=== PATIENT | male | born 1965 | race African-American/Black ===

== ENCOUNTER 2021-02-27 08:12 | Emergency (ER) | payer OTHER, SELFPAY ==
--- NOTE | ~2021-02-27 | CT_ITS ---
EXAMINATION: CT HEAD WITHOUT CONTRAST CLINICAL INFORMATION: Fall, trauma COMPARISON: None TECHNIQUE: Contiguous axial imaging was performed from the skull base to vertex without intravenous administration of contrast. Additional 2-D coronal and sagittal reformatted images are generated on the CT workstation and uploaded to PACS. This CT examination was performed using dose optimization techniques as appropriate, variously including the following: *Automated exposure control *Adjustment of mA and/or kV according to patient size (this includes techniques or standardized protocols for targeted exams where dose is matched to indication/reason for exam; i.e. extremities or head) *Use of iterative reconstruction technique DLP: 960 mGy-cm FINDINGS: There is no intracranial hemorrhage, hematoma, or extra-axial fluid collection. The ventricles are normal in size. There is no hydrocephalus, edema, or mass effect. The dawkins-white matter differentiation appears symmetric. Punctate basal ganglia calcifications present. There is no visible acute territorial infarct or mass lesion. There is depression proximal nasal bridge but without overlying soft tissue swelling suggesting old injury. This may be correlated with patient's symptoms and clinical exam. The calvarium appears intact. There is no calvarial fracture. There are no air-fluid levels in the sinuses and middle ears or mastoids. There is mild mucosal thickening left maxillary sinus. CT/CT head/brain wo con IMPRESSION: 1. No intracranial hemorrhage, hydrocephalus, or edema. 2. Probable old fracture nasal bridge. Clinically correlate.
--- NOTE | ~2021-02-27 | CT_ITS ---
EXAMINATION: CT CHEST, ABDOMEN AND PELVIS WITH CONTRAST. CLINICAL INFORMATION: Fell off a roof. COMPARISON: None TECHNIQUE: 5 mm thin and reformatted 3 mm sagittal and coronal images of chest, abdomen pelvis were obtained following IV 85 mL of Omnipaque 350. FINDINGS: Chest: Both lungs are fairly well-expanded and clear of acute pneumonic consolidation, mass or groundglass density. There are no pulmonary nodules. Mild compressive atelectasis seen in the dependent segment of right lower lobe. The thyroid lobes are symmetrical. There is a 6 mm hypodense nodule right lobe and a 8 mm hypodense nodule left lobe. The central trachea and bronchi are widely patent. Heart size and the great vessels are normal caliber. There is a 8 mm pretracheal lymph node. No additional lymph nodes seen. The heart size and great vessels are normal caliber. There are small bilateral axillary lymph nodes. The chest wall is unremarkable. There is no pleural effusion, thickening or calcified pleural plaques. Bone windows reveal left T12 rib fracture. No additional rib fractures seen. Abdomen and pelvis: The liver is normal size, contour and density. No focal lesion or intrahepatic ductal dilatation seen. There are no prevertebral gallstones or wall thickening. Visualized spleen, pancreas and right adrenal gland is unremarkable. There is a 1.3 x 1.0 cm left adrenal hypodense lesion. Both kidneys are symmetrical in size, shape and position. No radiopaque renal calculi or hydronephrosis seen. The abdominal aorta is normal caliber. No retroperitoneal lymph nodes or mass seen. There is scattered stool and gas seen throughout the colon without any significant distention. Appendix is normal caliber. There is enlargement of left psoas muscle with hematoma measuring approximately 10 cm in length. There is active bleeding adjacent to left L2 transverse process. The right psoas muscle appears normal. The abdominal wall appears unremarkable. Imaging to the pelvis reveals normal prostate gland and urinary bladder. Bone windows reveal displaced left L1, L2, L3 and L4 transverse process fractures. Also visualized is a T12 fracture with overlapping fracture fragments. Both hip joints and SI joints are symmetrical and normal. CT/CT abdomen pelvis w con IMPRESSION: Large left psoas hematoma multiple left transverse fractures from L1 through L4 vertebra and T12 left rib fracture with overlapping fragments. There is acute hemorrhagic component seen adjacent to the L2 vertebra. 1.3 cm left adrenal lesion. No acute process seen in the chest. Results were called to Dr. Marla Harris by phone at 10:20 AM in ED department
--- NOTE | ~2021-02-27 | CT_ITS ---
EXAMINATION: CT CERVICAL SPINE WITHOUT CONTRAST CLINICAL INFORMATION: Fall COMPARISON: None TECHNIQUE: Axial images through the cervical spine without contrast. Sagittal and coronal reconstructions were obtained on the technologist workstation. This CT examination was performed using dose optimization techniques as appropriate, variously including the following: *Automated exposure control *Adjustment of mA and/or kV according to patient size (this includes techniques or standardized protocols for targeted exams where dose is matched to indication/reason for exam; i.e. extremities or head) *Use of iterative reconstruction technique DLP: 460 mGy-cm FINDINGS: Bone alignment is normal. No fracture or dislocation is seen. There is evidence of mild degenerative spondylosis at C2-C3 and C4-C5. There are mild degenerative changes at the C1 dens articulation. Disc spaces are normal. Prevertebral soft tissues are normal. There is atherosclerotic disease. There is a left carotid stent. There is shotty cervical lymphadenopathy. Visualized lung apices are clear. CT/CT cervical spine wo con IMPRESSION: No fracture or dislocation seen.
[2021-02-27 08:25] VITALS: BP 163/91; PULSE 62; BMI 26.5
--- NOTE | 2021-02-27 08:45 | ED_ITS ---
HPI - Fall General Chief Complaint: Fall Stated Complaint: fell off roof Time Seen by Provider: 02/27/21 08:41 Source: patient Mode of arrival: ambulatory Limitations: no limitations History of Present Illness HPI Narrative: working on a roof, slipped backwards fell 15 feet landing on L side, takes aspirin and plavix no LOC MD complaint: fall Onset (ago): minute(s) Fall from: standing Fall witnessed: yes, by bystander Place fall occurred: work Loss of consciousness: none Prolonged down time: no Symptoms prior to fall: none Context: tripped/slipped Location of injury: abdomen (L flank, L hip area) Severity: severe Quality: sharp Associated symptoms (after fall): denies Related Data Allergies Allergy/AdvReac Type Severity Reaction Status Date / Time No Known Allergies Allergy Verified 02/27/21 08:23 Review of Systems Review of Systems: Constitutional : No Fever, No Chills ENT/Mouth : No Ear Pain, No Hoarseness, No sore throat Eyes: No Eye Pain, No Swelling, No Redness, No Foreign Body Cardiovascular : No Chest Pain, No SOB Respiratory : No Cough, No Dyspnea Gastrointestinal : No Nausea, No Vomiting, No Diarrhea, pos flank pain Genitourinary : No Dysuria, No Hematuria Musculoskeletal : positive joint pain, No Myalgias, No Joint Swelling Skin : No Skin lacerations, No rash Neuro : No Weakness, No Numbness, No Loss of Consciousness, No Dizziness, No Headache Psych : No Anxiety/Panic, No Depression Heme/Lymph: no easy bruising, no Lymphadenopathy Endocrine : No Polyuria, No Polydipsia All other systems reviewed and are negative [facility] Past Medical History Attestation statement: The following information was validated with the patient. Medical History HTN (hypertension) Stroke Social History Social History (Updated 02/27/21 @ 08:54 by Marla Adams DO) Patient Tobacco Use Status: Current everyday Tobacco user Physical Exam Vital Signs: Vital Signs: Last Vital Signs Pulse 62 02/27/21 08:25 BP 163/91 H 02/27/21 08:25 Body Mass Index 26.5 Appearance: Alert. Oriented X3. Anxious, agitated, mild acute distress. Eyes: Pupils equal, round and reactive to light. ENT: Pharynx normal. Neck: Normal inspection. Neck supple. Collar on CVS: Normal heart rate and rhythm. Pulses normal. Respiratory: No respiratory distress. Breath sounds normal. Abdomen: Soft and nontender. L flank severe ttp above iliac crest, no contusion or hematoma noted at this time Skin: Skin warm and dry. Normal skin color. Normal skin turgor. Extremities: No lower extremity edema. No calf ttp no pain over L hip joint itself Neuro: Oriented X 3. No motor deficit. No sensory deficit. Course Course Course Narrative: repeat pain meds, type and screen ordered, lipase high but no abdominal pain, ? L sided retroperitoneal hematoma - will discuss with radiology call to [facility] [place] [facility] [id number] given psoas hematoma with active bleeding, VS remain stable, became diaphoretic after repeat dilaudid radiology L 11-12 rib fracture L1-L4 transverse process fracture psoas hematoma with active bleeding 1030 accepted to ED category [address] Key Procedures FAST Exam FAST Exam 1: Fluid in Morison's pouch: No Fluid in Splenorenal Junction: No Fluid around bladder, Transverse view: No Fluid around bladder, Sagittal view: No Fluid in Pericardial Sac: No Gross Wall Motion Abnormality: No Study normal for this patient: Yes Images saved for further review: No MDM - Fall MDM Narrative Medical decision making narrative: 55 yo male with hx of HTN, stroke on aspirin and plavix comes in with c/o 15 foot fall at work, FAST negative, IVF, IV dilaudid for pain he is NV intact, - CT scan of head/cspine/abdomen/chest for trauma, dispo per results and findings. Lab Data Result diagrams: 02/27/21 08:54 02/27/21 08:54 Labs: Lab Results 02/27/21 02/27/21 02/27/21 Range/Units 08:54 08:54 08:54 WBC 7.5 (4.8-10.8) X10*3/uL RBC 3.85 L (4.60-5.80) X10*6/uL Hgb 12.0 L (14.0-18.0) g/dl Hct 38.2 L (42-52) % MCV 99.2 H (80-98) fL MCH 31.2 (27.0-33.0) pg MCHC 31.4 (31.0-36.0) g/dl RDW 12.7 (11.0-16.0) % Plt Count 287 (160-400) X10*3/uL MPV 9.5 (9.4-12.4) fL Immature Gran % (Auto) 0.8 H (0.0-0.4) % Neut % (Auto) 39.2 L (45-73) % Lymph % (Auto) 50.3 H (20-40) % Cocke % (Auto) 8.1 (2-11) % Eos % (Auto) 1.1 (0-4) % Baso % (Auto) 0.5 (0-2) % Lymph # (Auto) 3.8 (1.2-4.9) X10*3/uL Cocke # (Auto) 0.6 (0.1-1.2) X10*3/uL Eos # (Auto) 0.1 (0.0-0.4) X10*3/uL Baso # (Auto) 0.0 (0.0-0.2) X10*3/uL Abs Immat Gran (auto) 0.06 H (0.00-0.03) X10*3/uL Absolute Neuts (auto) 3.0 (2.0-8.3) X10*3/uL Absolute Nucleated RBC 0.000 (0.0-0.012) X10*3/uL Nucleated RBC % (auto) 0.0 (0.0-0.2) /100WBC PT 11.2 (9.9-13.0) SEC INR 1.0 (0.9-1.1) APTT 33.6 (24.1-38.0) SEC Sodium 143 (135-145) mmol/L Potassium 4.2 (3.3-5.1) mmol/L Chloride 109 H (96-108) mmol/L Carbon Dioxide 22 (22-29) mmol/L Anion Gap 16 (12-20) BUN 17 H (9-16) mg/dL Creatinine 1.09 (0.5-1.4) mg/dL Estim Creat Clear Calc 79.0 Estimated GFR > 60 Random Glucose 138 H (60-115) mg/dL Calcium 9.4 (8.4-10.2) mg/dL Magnesium 1.7 (1.6-2.6) mg/dL Total Bilirubin 0.3 (0.0-1.0) mg/dL Direct Bilirubin 0.2 (0.0-0.5) mg/dL AST 27 (5-37) U/L ALT 13 (0-40) U/L Alkaline Phosphatase 72 (39-117) U/L Total Protein 7.2 (6.5-8.0) g/dL Albumin 4.4 (3.5-5.0) g/dL Lipase 260 H (8-78) U/L Urine Color Urine Appearance Urine pH (5.0-8.0) Ur Specific [place] (1.005-1.025) Urine Protein (NEG-TRACE) MG/DL Urine Glucose (UA) (NEG) MG/DL Urine Ketones (NEG) MG/DL Urine Blood (NEG) Urine Nitrite (NEG) Ur Leukocyte Esterase (NEG) COVID-19 (HALLIE) (Negative) COVID-19 Clin Com 02/27/21 02/27/21 Range/Units 09:56 09:59 WBC (4.8-10.8) X10*3/uL RBC (4.60-5.80) X10*6/uL Hgb (14.0-18.0) g/dl Hct (42-52) % MCV (80-98) fL MCH (27.0-33.0) pg MCHC (31.0-36.0) g/dl RDW (11.0-16.0) % Plt Count (160-400) X10*3/uL MPV (9.4-12.4) fL Immature Gran % (Auto) (0.0-0.4) % Neut % (Auto) (45-73) % Lymph % (Auto) (20-40) % Cocke % (Auto) (2-11) % Eos % (Auto) (0-4) % Baso % (Auto) (0-2) % Lymph # (Auto) (1.2-4.9) X10*3/uL [place] # (Auto) (0.1-1.2) X10*3/uL Eos # (Auto) (0.0-0.4) X10*3/uL Baso # (Auto) (0.0-0.2) X10*3/uL Abs Immat Gran (auto) (0.00-0.03) X10*3/uL Absolute Neuts (auto) (2.0-8.3) X10*3/uL Absolute Nucleated RBC (0.0-0.012) X10*3/uL Nucleated RBC % (auto) (0.0-0.2) /100WBC PT (9.9-13.0) SEC INR (0.9-1.1) APTT (24.1-38.0) SEC Sodium (135-145) mmol/L Potassium (3.3-5.1) mmol/L Chloride (96-108) mmol/L Carbon Dioxide (22-29) mmol/L Anion Gap (12-20) BUN (9-16) mg/dL Creatinine (0.5-1.4) mg/dL Estim Creat Clear Calc Estimated GFR Random Glucose (60-115) mg/dL Calcium (8.4-10.2) mg/dL Magnesium (1.6-2.6) mg/dL Total Bilirubin (0.0-1.0) mg/dL Direct Bilirubin (0.0-0.5) mg/dL AST (5-37) U/L ALT (0-40) U/L Alkaline Phosphatase (39-117) U/L Total Protein (6.5-8.0) g/dL Albumin (3.5-5.0) g/dL Lipase (8-78) U/L Urine Color YELLOW Urine Appearance CLEAR Urine pH 6.0 (5.0-8.0) Ur Specific [place] 1.020 (1.005-1.025) Urine Protein NEG (NEG-TRACE) MG/DL Urine Glucose (UA) NEG (NEG) MG/DL Urine Ketones NEG (NEG) MG/DL Urine Blood NEG (NEG) Urine Nitrite NEG (NEG) Ur Leukocyte Esterase NEG (NEG) COVID-19 (HALLIE) Negative (Negative) COVID-19 Clin Com See Note Critical Care Time Critical Care Time Critical Care Time: Yes Total Critical Care Time: 60 Attestation: I attest to this time spent taking care of the patient Discharge Plan Discharge Clinical Impression: Fracture of transverse process of lumbar vertebra, Fracture of rib, Active internal bleeding Patient Disposition: [facility] Transfer Details: [facility]
[2021-02-27] MEDS: HYDROmorphone HCl 1 MG/ML SYRINGE IVPUSH ×2 (08:51→09:24)
[2021-02-27] MEDS: 0.9 % Sodium Chloride 1,000 ML 999 ML IVCONT ×2 (08:54→09:52)
[2021-02-27 09:04] LABS: Basophils Percent Auto 0.5 % (0-2); Eosinophils Absolute Auto 0.1 X10*3/uL (0.0-0.4); Eosinophils Percent Auto 1.1 % (0-4); Hematocrit 38.2 % (42-52); Imm Gran Abs Auto 0.06 X10*3/uL (0.00-0.03); Imm Gran Pct Auto 0.8 % (0.0-0.4); Lymphocytes Absolute Auto 3.8 X10*3/uL (1.2-4.9); Lymphocytes Percent Auto 50.3 % (20-40); MANUAL DIFF FLAG NO; Mean Corpuscular HGB Conc 31.4 g/dl (31.0-36.0); Mean Corpuscular Hemoglobin 31.2 pg (27.0-33.0); Mean Corpuscular Volume 99.2 fL (80-98); Mean Platelet Volume 9.5 fL (9.4-12.4); Monocytes Absolute Auto 0.6 X10*3/uL (0.1-1.2); Monocytes Percent Auto 8.1 % (2-11); Neutrophils Percent Auto 39.2 % (45-73); Platelet Count 287 X10*3/uL (160-400); Red Blood Count 3.85 X10*6/uL (4.60-5.80); Red Cell Distribution Width 12.7 % (11.0-16.0); White Blood Count 7.5 X10*3/uL (4.8-10.8)
[2021-02-27 09:11] LABS: Prothrombin Time 11.2 SEC (9.9-13.0)
[2021-02-27 09:13] LABS: Partial Thromboplastin Time 33.6 SEC (24.1-38.0)
[2021-02-27] MEDS: iohexoL 350 MG/ML 100 ML INFUS..BTL IV (09:26)
[2021-02-27 09:37] LABS: Alanine Aminotransferase 13 U/L (0-40); Albumin Level 4.4 g/dL (3.5-5.0); Alkaline Phosphatase 72 U/L (39-117); Anion Gap 16 (12-20); Aspartate Amino Transferase 27 U/L (5-37); Bilirubin Direct 0.2 mg/dL (0.0-0.5); Bilirubin Total 0.3 mg/dL (0.0-1.0); Blood Urea Nitrogen 17 mg/dL (9-16); Calcium 9.4 mg/dL (8.4-10.2); Carbon Dioxide 22 mmol/L (22-29); Chloride 109 mmol/L (96-108); Estimated Glomerular Filt Rate > 60; Glucose Random 138 mg/dL (60-115); Lipase 260 U/L (8-78); Magnesium 1.7 mg/dL (1.6-2.6); Potassium 4.2 mmol/L (3.3-5.1); Sodium 143 mmol/L (135-145); Total Protein 7.2 g/dL (6.5-8.0)
[2021-02-27 10:20] LABS: Glucose Urine UA NEG (NEG); Leukocyte Esterase Urine NEG (NEG); Nitrite Urine NEG (NEG); Urine Blood NEG (NEG); Urine Ketones NEG (NEG); Urine Protein NEG (NEG-TRACE)
[2021-02-27 10:21] LABS: Appearance Urine CLEAR; Color Urine YELLOW
[2021-02-27 10:30] LABS: COVID-19 Test Negative (Negative); IDNOW Serial# 9DD0AD1C
[2021-02-27 10:33] LABS: Ethanol < 10 mg/dL
[2021-02-27 10:38] VITALS: BP 220/99; PULSE 89
[2021-02-27 10:46] LABS: Amphetamine Screen Urine Not Detected (Not Detect); Barbiturates, Urine Not Detected (Not Detect); Benzodiazepines Screen Urine Not Detected (Not Detect); Cannabinoid Screen Urine POSITIVE (Not Detect); Cocaine Screen Urine Not Detected (Not Detect); Opiate Screen Urine Not Detected (Not Detect); Phencyclidine Screen Urine Not Detected (Not Detect)
[2021-02-27] MEDS: fentaNYL citrate/PF 100 MCG/2 ML VIAL 50 MCG IVPUSH (11:00)
[2021-02-27 11:13] LABS: Glucose, Whole Blood 126 mg/dL (60-115)
== END 2021-02-27 11:08 | disposition short-term general hospital (02) ==
PROVIDERS: Emergency Provider Emergency Medicine
DX: S32.009A Unspecified fracture of unspecified lumbar vertebra, initial encounter for closed fracture (principal); S22.42XA Multiple fractures of ribs, left side, initial encounter for closed fracture; R07.81 Pleurodynia; M54.6 Pain in thoracic spine; M54.2 Cervicalgia; G44.309 Post-traumatic headache, unspecified, not intractable; W17.89XA Other fall from one level to another, initial encounter; Y93.9 Activity, unspecified; Y92.009 Unspecified place in unspecified non-institutional (private) residence as the place of occurrence of the external cause; Y99.9 Unspecified external cause status; Z20.822 Contact with and (suspected) exposure to COVID-19; Z79.899 Other long term (current) drug therapy
CPT/HCPCS: 36415; 70450; 71260; 72125; 74177; 80048; 80076; 80307; 81003; 82077; 82947; 83690; 83735; 85025; 85610; 85730; 86850; 86900; 86901; 87635; 96365; 96375; 96376; 99285; 99291; J1170; J2405; J3010; Q9967

== ENCOUNTER 2021-08-30 11:29 | Outpatient (REF) | payer SELFPAY ==
[2021-08-30 13:53] LABS: Anion Gap 11 (12-20); Blood Urea Nitrogen 20 mg/dL (9-16); Calcium 9.8 mg/dL (8.4-10.2); Carbon Dioxide 26 mmol/L (22-29); Chloride 109 mmol/L (96-108); Estimated Glomerular Filt Rate > 60; Glucose Random 93 mg/dL (60-115); Potassium 4.4 mmol/L (3.3-5.1); Sodium 142 mmol/L (135-145)
== END 2021-08-30 11:30 | disposition home or self-care (01) ==
LOC: HO.WFDLDS 11:29
PROVIDERS: Visit Provider Hospitalist
DX: M54.50 Low back pain, unspecified (principal); Z91.81 History of falling
CPT/HCPCS: 36415; 80048